=== PATIENT | female | born 1945 | race Caucasian/White ===

== ENCOUNTER 2021-12-17 18:19 | Emergency (ER) | payer MEDICARE, BC ==
[2021-12-17] MEDS ORDERED: Ondansetron 4 MG Tab.DIS PO STA (20:42)
[2021-12-17] MEDS ORDERED: Meclizine 25 MG Tab PO ONE (20:42)
== END 2021-12-17 21:06 | disposition home or self-care (01) ==
LOC: FB.ED 18:19
DX: S09.90XA Unspecified injury of head, initial encounter (principal); I10 Essential (primary) hypertension; Z79.899 Other long term (current) drug therapy; W01.198A Fall on same level from slipping, tripping and stumbling with subsequent striking against other object, initial encounter; Y93.01 Activity, walking, marching and hiking
CPT/HCPCS: 70450; 99283; A9270; Q0162